=== PATIENT | male | born 1985 | race Caucasian/White ===

== ENCOUNTER 2023-07-18 22:06 | Emergency (ER) | payer SELFPAY ==
[~2023-07-18] VITALS: Ht 170.2 cm; Wt 81.6 kg
[2023-07-18 22:08] VITALS: BP 198/122; PULSE 116; RESP 18; TEMP 98; O2SAT 96
[2023-07-18 22:10] VITALS: RESP 18; TEMP 98
[2023-07-18] MEDS: NACL 0.9% 1,000 ML IV ONE (23:02)
[2023-07-18] MEDS: amLODIPine 5 MG TAB PO ONE (23:09)
[2023-07-18 23:16] LABS: BASOPHILS % (AUTO) 0.2 % (0.0-2.0); EOSINOPHILS % (AUTO) 0.2 % (0.0-4.0); HEMATOCRIT 49.8 % (36-52); HEMOGLOBIN 17.7 g/dL (12.0-18.0); LYMPHOCYTES # (AUTO) 0.8 K/uL (2.0-11.5); MEAN CORPUSCULAR HEMOGLOBIN 32 pg (27-31); MEAN CORPUSCULAR HGB CONC 36 g/dL (33-37); MEAN CORPUSCULAR VOLUME 90.2 fL (80-94); MONOCYTES # (AUTO) 0.6 K/uL (0.8-1.0); NEUTROPHILS # (AUTO) 11.2 K/uL (1.8-7.7); NEUTROPHILS % (AUTO) 88.6 % (42.2-75.2); PLATELET COUNT (AUTO) 162 K/uL (140-450); RED BLOOD CELL COUNT(AUTO) 5.52 MIL/uL (4.20-6.10); RED CELL DISTRIBUTION WIDTH 13.5 % (11.6-13.7); WHITE BLOOD COUNT (AUTO) 12.6 K/uL (4.8-10.8)
[2023-07-18 23:25] LABS: ANION GAP 19.9 (8-16); CALCIUM 8.6 mg/dL (8.5-10.1); CARBON DIOXIDE 22.6 mmol/L (21-32); CREATININE 0.9 mg/dL (0.6-1.3); POTASSIUM 3.5 mmol/L (3.5-5.1)
[2023-07-18 23:57] LABS: ALANINE AMINOTRANSFERASE 75 U/L (12-78); ALBUMIN 4.2 g/dL (3.4-5.0); ALKALINE PHOSPHATASE 108 U/L (50-136); ASPARTATE AMINOTRANSFERASE 57 U/L (15-37); BILIRUBIN,DIRECT 0.3 mg/dL (0.0-0.3); CREATINE KINASE, TOTAL 377 U/L (39-308); TOTAL BILIRUBIN 1.4 mg/dL (0.0-1.0); TOTAL PROTEIN, SERUM 8.3 g/dL (6.4-8.2)
[2023-07-19] MEDS: hydroCHLOROthiazide 25 MG TAB PO ONE (00:25)
[2023-07-19 00:26] VITALS: O2SAT 99
[2023-07-19 02:58] VITALS: BP 190/108; PULSE 102
[2023-07-19] MEDS ORDERED: AMLO5TAB PO (03:34)
== END 2023-07-19 03:15 ==
LOC: MED 22:06
DX: I10 Essential (primary) hypertension (principal); Z79.899 Other long term (current) drug therapy
CPT/HCPCS: 36415; 80048; 80076; 82550; 82553; 84484; 85025; 93005; 96360; 99284; J7030